=== PATIENT | female | born 1990 | race Caucasian/White ===

== ENCOUNTER → 2019-09-19 15:13 | Observation (INO) ==
[2019-09-19 10:58] LABS: Bilirubin,Urine Negative (Negative); Blood,Urine Negative (Negative); Clarity,Urine Cloudy (Clear); Color,Urine Yellow (Yellow); Glucose,Urine (UA) Normal (Normal); Ketones,Urine Negative (Negative); Leukocyte Esterase,Urine Small (Negative); Nitrite,Urine Negative (Negative); PH,Urine 6.5 pH Units (5.0-8.0); Protein,Urine Negative (Neg-Trace); Specific Gravity,Urine 1.027 (1.010-1.025); Urobilinogen,Urine Normal (Normal)
[2019-09-19 11:01] LABS: Bacteria,Urine Few per hpf (None-Few); Hyaline Casts,Urine Few per lpf (None-Few); Squamous Epithelial Cell,Urine Many per lpf (None-Few)
[2019-09-19 11:12] LABS: RBC,Urine 0-3 per hpf (0-3)
[2019-09-19 11:13] LABS: Amorphous Sediment,Urine Few (Few); Amphetamine Screen,Urine Negative ng/mL (Cutoff=1000); Barbiturate Screen,Urine Negative ng/mL (Cutoff=200); Benzodiazepines Screen,Urine Negative ng/mL (Cutoff=200); Cannabinoid Screen,Urine Negative ng/mL (Cutoff = 50); Cocaine Screen,Urine Negative ng/mL (Cutoff= 300); Mucus,Urine Few (Few); Opiate Screen,Urine Negative ng/mL (Cutoff=300); Phencyclidine Screen,Urine Negative ng/mL (Cutoff=25)
[2019-09-19 11:38] LABS: Basophils % 0.3 %; Eosinophils # 0.1 K/mcL (0.0-0.6); Eosinophils % 0.7 %; Hematocrit 36.6 % (35.3-44.9); Hemoglobin 12.7 g/dL (11.5-15.4); Immature Granulocytes % 0.3 % (0-4); Lymphocytes # 1.8 K/mcL (0.6-4.6); Lymphocytes % 19.2 %; Mean Corpuscular HGB Conc 34.7 g/dL (31.6-35.5); Mean Corpuscular Hemoglobin 30.9 pg (28.0-33.3); Mean Corpuscular Volume 89.1 fL (83.0-100.0); Mean Platelet Volume 9.2 fL (9.4-12.4); Monocytes # 0.6 K/mcL (0.0-1.3); Neutrophils # 6.6 K/mcL (1.6-8.9); Platelet Count 254 K/mcL (140-400); Red Blood Count 4.11 M/mcL (3.82-4.97); Red Cell Distribution Width 12.5 % (11.5-14.5); Segmented Neutrophils % 72.5 %; White Blood Count 9.1 K/mcL (4.3-11.1)
[2019-09-19 11:57] LABS: Potassium 3.2 mEq/L (3.5-5.1)
[~2019-09-19 15:13] MED LIST: Betamethasone Acet/SodPhos 30 MG/5 ML VIAL IM SCH; Ondansetron 4 MG/2 ML VIAL IVP PRN; Ringers Solution, Lactated 1,000 ML IVC ONE; Terbutaline 1 MG/ML VIAL SQ ONE
== END | disposition home or self-care (01) ==
LOC: 1NENULAB
PROVIDERS: ADMIT Advanced Practice Midwife; ATTEND Advanced Practice Midwife

== ENCOUNTER → 2019-09-20 11:23 | Observation (INO) ==
[2019-09-20 10:18] LABS: Amphetamine Screen,Urine Negative ng/mL (Cutoff=1000); Barbiturate Screen,Urine Negative ng/mL (Cutoff=200); Benzodiazepines Screen,Urine Negative ng/mL (Cutoff=200); Cannabinoid Screen,Urine Negative ng/mL (Cutoff = 50); Cocaine Screen,Urine Negative ng/mL (Cutoff= 300); Opiate Screen,Urine Negative ng/mL (Cutoff=300); Phencyclidine Screen,Urine Negative ng/mL (Cutoff=25)
== END | disposition home or self-care (01) ==
LOC: 1NENULAB
PROVIDERS: ADMIT Registered Nurse; ATTEND Registered Nurse

== ENCOUNTER → 2019-10-05 14:15 | Observation (INO) ==
[2019-10-05 14:58] LABS: Amphetamine Screen,Urine Negative ng/mL (Cutoff=1000); Barbiturate Screen,Urine Negative ng/mL (Cutoff=200); Benzodiazepines Screen,Urine Negative ng/mL (Cutoff=200); Cannabinoid Screen,Urine Negative ng/mL (Cutoff = 50); Cocaine Screen,Urine Negative ng/mL (Cutoff= 300); Opiate Screen,Urine Negative ng/mL (Cutoff=300); Phencyclidine Screen,Urine Negative ng/mL (Cutoff=25)
== END | disposition home or self-care (01) ==
LOC: 1NENULAB
PROVIDERS: ADMIT Obstetrics & Gynecology; ATTEND Obstetrics & Gynecology

== ENCOUNTER → 2019-11-03 04:04 | Observation (INO) ==
[2019-11-02 23:44] LABS: Bilirubin,Urine Negative (Negative); Blood,Urine Negative (Negative); Clarity,Urine Cloudy (Clear); Color,Urine Yellow (Yellow); Glucose,Urine (UA) Normal (Normal); Ketones,Urine Negative (Negative); Leukocyte Esterase,Urine Trace (Negative); Nitrite,Urine Negative (Negative); Protein,Urine Negative (Neg-Trace); Specific Gravity,Urine 1.023 (1.010-1.025); Urobilinogen,Urine Normal (Normal)
[2019-11-02 23:53] LABS: Squamous Epithelial Cell,Urine Few per lpf (None-Few)
[2019-11-02 23:54] LABS: Bacteria,Urine Few per hpf (None-Few)
[2019-11-02 23:56] LABS: Amphetamine Screen,Urine Negative ng/mL (Cutoff=1000); Barbiturate Screen,Urine Negative ng/mL (Cutoff=200); Benzodiazepines Screen,Urine Negative ng/mL (Cutoff=200); Cannabinoid Screen,Urine Negative ng/mL (Cutoff = 50); Cocaine Screen,Urine Negative ng/mL (Cutoff= 300); Opiate Screen,Urine Negative ng/mL (Cutoff=300); Phencyclidine Screen,Urine Negative ng/mL (Cutoff=25)
[~2019-11-03 04:04] MED LIST changes: +NIFEdipine 10 MG CAPSULE PO ONE; -Ondansetron 4 MG/2 ML VIAL IVP PRN; +Ringers Solution, Lactated 1,000 ML IVC SCH; +Ringers Solution, Lactated 1,000 ML ONE
== END | disposition home or self-care (01) ==
LOC: 1NENULAB
PROVIDERS: ADMIT Advanced Practice Midwife; ATTEND Advanced Practice Midwife

== ENCOUNTER → 2019-11-22 21:30 | Observation (INO) ==
[2019-11-22 19:57] LABS: Bilirubin,Urine Negative (Negative); Blood,Urine Negative (Negative); Clarity,Urine Cloudy (Clear); Color,Urine Yellow (Yellow); Glucose,Urine (UA) Normal (Normal); Ketones,Urine Negative (Negative); Leukocyte Esterase,Urine Small (Negative); Nitrite,Urine Negative (Negative); Protein,Urine Trace mg/dL (Neg-Trace); Specific Gravity,Urine 1.028 (1.010-1.025); Urobilinogen,Urine Normal (Normal)
[2019-11-22 20:03] LABS: Bacteria,Urine Few per hpf (None-Few); Hyaline Casts,Urine None Seen per lpf (None-Few)
[2019-11-22 20:06] LABS: RBC,Urine 0-3 per hpf (0-3); Squamous Epithelial Cell,Urine Moderate per lpf (None-Few)
== END | disposition home or self-care (01) ==
LOC: 1NENULAB
PROVIDERS: ADMIT Registered Nurse; ATTEND Registered Nurse

== ENCOUNTER 2019-12-07 20:49 | Inpatient (IN) ==
[~2019-12-07 20:49] MED LIST changes: -Betamethasone Acet/SodPhos 30 MG/5 ML VIAL IM SCH; +Famotidine 20 MG/2 ML VIAL IVP PRN; +Lidocaine 1% 20 ML MDV INFILT PRN; +Metoclopramide 10 MG/2 ML VIAL IVP PRN; -NIFEdipine 10 MG CAPSULE PO ONE; +Naloxone 0.4 MG/ML INJ IVP PRN; -Ringers Solution, Lactated 1,000 ML IVC ONE; -Ringers Solution, Lactated 1,000 ML IVC SCH; -Ringers Solution, Lactated 1,000 ML ONE; -Terbutaline 1 MG/ML VIAL SQ ONE
[2019-12-07] MEDS ORDERED: Ringers Solution, Lactated 1,000 ML IVC SCH (21:00)
[2019-12-07] MEDS ORDERED: Oxytocin 20 units/ LR 1000 mL 20 UNIT/1,000 ML BAG IVC SCH (21:00)
[2019-12-07 21:09] LABS: Basophils % 0.3 %; Eosinophils # 0.1 K/mcL (0.0-0.6); Eosinophils % 0.6 %; Hematocrit 34.1 % (35.3-44.9); Hemoglobin 11.3 g/dL (11.5-15.4); Immature Granulocytes % 0.4 % (0-4); Lymphocytes # 2.3 K/mcL (0.6-4.6); Lymphocytes % 16.1 %; Mean Corpuscular HGB Conc 33.1 g/dL (31.6-35.5); Mean Corpuscular Hemoglobin 28.5 pg (28.0-33.3); Mean Corpuscular Volume 86.1 fL (83.0-100.0); Mean Platelet Volume 9.4 fL (9.4-12.4); Monocytes # 1.2 K/mcL (0.0-1.3); Monocytes % 8.2 %; Neutrophils # 10.6 K/mcL (1.6-8.9); Platelet Count 285 K/mcL (140-400); Red Blood Count 3.96 M/mcL (3.82-4.97); Red Cell Distribution Width 13.3 % (11.5-14.5); Segmented Neutrophils % 74.4 %; White Blood Count 14.3 K/mcL (4.3-11.1)
[2019-12-07 21:21] LABS: Amphetamine Screen,Urine Negative ng/mL (Cutoff=1000); Barbiturate Screen,Urine Negative ng/mL (Cutoff=200); Benzodiazepines Screen,Urine Negative ng/mL (Cutoff=200); Cannabinoid Screen,Urine Negative ng/mL (Cutoff = 50); Cocaine Screen,Urine Negative ng/mL (Cutoff= 300); Opiate Screen,Urine Negative ng/mL (Cutoff=300); Phencyclidine Screen,Urine Negative ng/mL (Cutoff=25)
[2019-12-07] MEDS ORDERED: Bupivacaine-MPF 0.25% 10 ML VIAL EP ONE (22:15)
[2019-12-07] MEDS ORDERED: EPHEDrine 50 MG/ML VIAL IVP PRN (22:15)
[2019-12-07] MEDS ORDERED: *HR* FentaNYL (PF) 100 MCG/2 ML VIAL EP ONE (22:15)
[2019-12-07] MEDS ORDERED: Epidural Premix (fent/bupiv) 110 ML EP SCH (22:15)
[2019-12-07] MEDS ORDERED: *HR* FentaNYL (PF) 100 MCG/2 ML VIAL ONE (22:17)
[2019-12-07] MEDS ORDERED: Bupivacaine-MPF 0.25% 10 ML VIAL ONE (22:17)
[2019-12-08] MEDS ORDERED: Oxytocin 20 units/ LR 1000 mL 20 UNIT/1,000 ML BAG IVC SCH (08:56)
[2019-12-08] MEDS ORDERED: Measles/Mumps/Rubella Vacc 0.5 ML VIAL SQ PRN (08:56)
[2019-12-08] MEDS: Prenatal Vit/FA 1 EACH TABLET PO SCH (09:29)
[2019-12-08] MEDS: Ibuprofen 600 MG TABLET PO PRN ×3 (09:29→22:48)
[2019-12-08] MEDS ORDERED: Benzocaine/Menthol 56 GM AEROSOL SPRAY TP ONE (10:45)
[2019-12-08] MEDS: Acetaminophen 325 MG TABLET PO PRN ×2 (16:49→22:47)
[2019-12-08] MEDS ORDERED: *HR* HYDROcodone/Acet 5/325 mg TABLET PO ONE (23:01)
[2019-12-09] MEDS: Ibuprofen 600 MG TABLET PO PRN (05:18)
[2019-12-09 07:51] VITALS: BP 105/68
[2019-12-09 08:07] LABS: Basophils # 0.1 K/mcL (0.0-0.2); Basophils % 0.4 %; Eosinophils # 0.1 K/mcL (0.0-0.6); Eosinophils % 0.8 %; Hematocrit 32.5 % (35.3-44.9); Hemoglobin 10.5 g/dL (11.5-15.4); Immature Granulocytes % 0.3 % (0-4); Lymphocytes # 3.2 K/mcL (0.6-4.6); Lymphocytes % 25.3 %; Mean Corpuscular HGB Conc 32.3 g/dL (31.6-35.5); Mean Corpuscular Hemoglobin 28.1 pg (28.0-33.3); Mean Corpuscular Volume 86.9 fL (83.0-100.0); Mean Platelet Volume 9.6 fL (9.4-12.4); Monocytes # 0.9 K/mcL (0.0-1.3); Monocytes % 7.3 %; Neutrophils # 8.3 K/mcL (1.6-8.9); Platelet Count 270 K/mcL (140-400); Red Blood Count 3.74 M/mcL (3.82-4.97); Red Cell Distribution Width 13.5 % (11.5-14.5); Segmented Neutrophils % 65.9 %; White Blood Count 12.6 K/mcL (4.3-11.1)
[2019-12-09] MEDS: Prenatal Vit/FA 1 EACH TABLET PO SCH (08:28)
[2019-12-09] MEDS: Acetaminophen 325 MG TABLET PO PRN (08:28)
== END 2019-12-09 14:00 | disposition home or self-care (01) | DRG 560 ==
LOC: 1NENULAB → 1NENUOBS 12-08 08:38
PROVIDERS: ADMIT Obstetrics & Gynecology; ATTEND Obstetrics & Gynecology

== ENCOUNTER → 2021-10-17 01:39 | Observation (INO) ==
[~2021-10-17 01:39] MED LIST changes: +EPHEDrine 50 MG/ML VIAL IVP PRN; +Epidural Premix (fent/bupiv) 110 ML EP SCH; -Famotidine 20 MG/2 ML VIAL IVP PRN; -Lidocaine 1% 20 ML MDV INFILT PRN; -Metoclopramide 10 MG/2 ML VIAL IVP PRN; -Naloxone 0.4 MG/ML INJ IVP PRN
== END | disposition home or self-care (01) ==
LOC: 1NENULAB
PROVIDERS: ADMIT Obstetrics & Gynecology; ATTEND Obstetrics & Gynecology

== ENCOUNTER 2021-10-25 06:00 | Inpatient (IN) ==
[2021-10-25] MEDS ORDERED: EPHEDrine 50 MG/ML VIAL IVP PRN (06:41)
[2021-10-25] MEDS ORDERED: *HR* Nalbuphine 10 MG/ML AMPUL IV PRN (06:44)
[2021-10-25] MEDS ORDERED: Metoclopramide 10 MG/2 ML VIAL IVP PRN (06:44)
[2021-10-25] MEDS ORDERED: Naloxone 0.4 MG/ML INJ IVP PRN (06:44)
[2021-10-25] MEDS ORDERED: Famotidine 20 MG/2 ML VIAL IVP PRN (06:44)
[2021-10-25] MEDS ORDERED: Epidural Premix (fent/bupiv) 110 ML EP SCH (06:45)
[2021-10-25] MEDS ORDERED: Ringers Solution, Lactated 1,000 ML IVC SCH (06:45)
== END 2021-10-25 07:30 | disposition home or self-care (01) | DRG 566 ==
LOC: 1NENULAB 06:24
PROVIDERS: ADMIT Obstetrics & Gynecology; ATTEND Obstetrics & Gynecology

== ENCOUNTER 2021-10-29 10:51 | Inpatient (IN) ==
[2021-10-29] MEDS ORDERED: Azithromycin 500 MG in 0.9 % Sodium Chloride 250 ML IVPB PRN (11:23)
[2021-10-29] MEDS ORDERED: Famotidine 20 MG/2 ML VIAL IVP PRN (11:23)
[2021-10-29] MEDS ORDERED: Ondansetron 4 MG/2 ML VIAL IVP PRN (11:23)
[2021-10-29] MEDS ORDERED: Metoclopramide 10 MG/2 ML VIAL IVP PRN (11:23)
[2021-10-29] MEDS ORDERED: *HR* Nalbuphine 10 MG/ML AMPUL IV PRN (11:23)
[2021-10-29] MEDS ORDERED: Naloxone 0.4 MG/ML INJ IVP PRN (11:23)
[2021-10-29] MEDS ORDERED: Lidocaine 1% 20 ML MDV ID PRN (11:23)
[2021-10-29] MEDS ORDERED: Ringers Solution, Lactated 1,000 ML IVC SCH (11:30)
[2021-10-29 11:44] LABS: Basophils # 0.1 K/mcL (0.0-0.2); Basophils % 0.4 %; Eosinophils # 0.1 K/mcL (0.0-0.6); Eosinophils % 0.6 %; Hematocrit 39.9 % (35.3-44.9); Hemoglobin 13.2 g/dL (11.5-15.4); Immature Granulocytes % 0.5 % (0-4); Lymphocytes # 2.2 K/mcL (0.6-4.6); Lymphocytes % 17.3 %; Mean Corpuscular HGB Conc 33.1 g/dL (31.6-35.5); Mean Corpuscular Hemoglobin 27.6 pg (28.0-33.3); Mean Corpuscular Volume 83.3 fL (83.0-100.0); Mean Platelet Volume 9.8 fL (9.4-12.4); Monocytes # 0.7 K/mcL (0.0-1.3); Monocytes % 5.6 %; Neutrophils # 9.7 K/mcL (1.6-8.9); Platelet Count 319 K/mcL (140-400); Red Blood Count 4.79 M/mcL (3.82-4.97); Red Cell Distribution Width 13.5 % (11.5-14.5); Segmented Neutrophils % 75.6 %; White Blood Count 12.9 K/mcL (4.3-11.1)
[2021-10-29] MEDS ORDERED: Oxytocin 20 units/ LR 1000 mL 20 UNIT/1,000 ML BAG IVC ONE (11:52)
[2021-10-29 12:07] LABS: Amphetamine Screen,Urine Negative ng/mL (Cutoff=1000); Barbiturate Screen,Urine Negative ng/mL (Cutoff=200); Benzodiazepines Screen,Urine Negative ng/mL (Cutoff=200); Cannabinoid Screen,Urine Negative ng/mL (Cutoff = 50); Cocaine Screen,Urine Negative ng/mL (Cutoff= 300); Opiate Screen,Urine Negative ng/mL (Cutoff=300); Phencyclidine Screen,Urine Negative ng/mL (Cutoff=25)
[2021-10-29] MEDS ORDERED: EPHEDrine 50 MG/ML VIAL IVP PRN (12:11)
[2021-10-29] MEDS ORDERED: Epidural Premix (fent/bupiv) 110 ML EP SCH (12:15)
[2021-10-29] MEDS ORDERED: Benzocaine/Menthol 56 GM AEROSOL SPRAY TP PRN (18:39)
[2021-10-29] MEDS ORDERED: Lanolin 7 G OINT...G. TP PRN (18:39)
[2021-10-29] MEDS ORDERED: Ondansetron ODT 4 MG TAB.RAPDIS SL PRN (18:39)
[2021-10-29] MEDS ORDERED: Measles/Mumps/Rubella Vacc 0.5 ML VIAL SQ PRN (18:39)
[2021-10-29] MEDS ORDERED: Oxytocin 20 units/ LR 1000 mL 20 UNIT/1,000 ML BAG IVC SCH (18:45)
[2021-10-29] MEDS: Acetaminophen 325 MG TABLET PO SCH (19:46)
[2021-10-29] MEDS: Ibuprofen 600 MG TABLET PO SCH (21:12)
[2021-10-30] MEDS: Acetaminophen 325 MG TABLET PO SCH ×2 (01:48→08:40)
[2021-10-30] MEDS: Ibuprofen 600 MG TABLET PO SCH ×2 (05:24→11:57)
[2021-10-30 07:50] VITALS: BP 94/60; PULSE 64; TEMP 98; O2SAT 99
[2021-10-30] MEDS ORDERED: Prenatal Vit/FA 1 EACH TABLET PO SCH (09:00)
== END 2021-10-30 17:40 | disposition home or self-care (01) | DRG 560 ==
LOC: 1NENULAB 10:51 → 1NENUOBS 18:24
PROVIDERS: ADMIT Obstetrics & Gynecology; ATTEND Obstetrics & Gynecology